=== PATIENT | male | born 1990 | race Caucasian/White ===

== ENCOUNTER 2017-11-21 01:23 | Emergency (ER) | payer OTHER ==
[~2017-11-21] VITALS: Ht 172.7 cm; Wt 87.0 kg
[2017-11-21] MEDS ORDERED: IBUPROFEN 600MG TABLET PO ONE (04:00)
[2017-11-21 06:38] VITALS: BP 104/70
== END 2017-11-21 07:09 | disposition home or self-care (01) ==
LOC: ER 01:23
DX: S69.91XA Unspecified injury of right wrist, hand and finger(s), initial encounter (principal); F41.9 Anxiety disorder, unspecified; X58.XXXA Exposure to other specified factors, initial encounter; Y93.89 Activity, other specified; Y92.89 Other specified places as the place of occurrence of the external cause; Y99.8 Other external cause status
CPT/HCPCS: 73130; 99284; Z7610